=== PATIENT | female | born 1960 | race Caucasian/White ===

== ENCOUNTER 2017-11-19 17:38 | Emergency (ER) | payer OTHER ==
[~2017-11-19] VITALS: Ht 180.3 cm; Wt 124.3 kg
[2017-11-19 17:44] VITALS: BP 144/90; Ht 180.3 cm; Wt 124.3 kg
== END 2017-11-19 20:15 | disposition home or self-care (01) ==
LOC: ED 17:38
DX: H01.011 Ulcerative blepharitis right upper eyelid (principal); I10 Essential (primary) hypertension; E11.9 Type 2 diabetes mellitus without complications; M79.7 Fibromyalgia

== ENCOUNTER 2018-12-11 06:08 | Emergency (ER) | payer OTHER ==
[~2018-12-11] VITALS: Ht 177.8 cm; Wt 120.2 kg
[2018-12-11 06:14] VITALS: Ht 177.8 cm; Wt 120.2 kg
[2018-12-11 07:07] LABS: BASOPHIL % 0.4 % (0-2); PLATELET COUNT 232 x10^3mcL (130-400); RED CELL DISTRIBUTION WIDTH 13.5 % (11.5-14.5)
[2018-12-11 07:14] LABS: CALCIUM 9.4 mg/dL (8.5-10.1); CHLORIDE SERUM 105 mmol/L (98-107); CREATININE SERUM 0.6 mg/dL (0.6-1.0); GFR1 > 60 mL/min; GLUCOSE SERUM 225 mg/dL (74-106); POTASSIUM SERUM 4.2 mmol/L (3.5-5.1); SODIUM SERUM 142 mmol/L (136-145)
[2018-12-11 07:20] LABS: ALBUMIN 3.4 g/dL (3.4-5.0); ALKALINE PHOSPHATASE 86 U/L (46-116); ALT/SGPT 59 U/L (14-59); AST/SGOT 35 U/L (15-37); BILIRUBIN TOTAL 0.4 mg/dL (0.20-1.00); TOTAL PROTEIN, SERUM 7.1 g/dL (6.4-8.2)
[2018-12-11 08:18] VITALS: BP 145/68
== END 2018-12-11 08:18 | disposition home or self-care (01) ==
LOC: ED 06:08
PROVIDERS: Emergency Medicine
DX: S80.02XA Contusion of left knee, initial encounter (principal); I10 Essential (primary) hypertension; E11.9 Type 2 diabetes mellitus without complications; E78.00 Pure hypercholesterolemia, unspecified; R42 Dizziness and giddiness; R55 Syncope and collapse; W18.30XA Fall on same level, unspecified, initial encounter; Y93.89 Activity, other specified; Y92.89 Other specified places as the place of occurrence of the external cause; Y99.8 Other external cause status
CPT/HCPCS: 36415

== ENCOUNTER 2019-02-17 19:09 | Inpatient (IN) | payer OTHER ==
[~2019-02-17] VITALS: Ht 177.8 cm; Wt 123.6 kg
[2019-02-17 19:19] VITALS: Ht 177.8 cm; Wt 123.6 kg
--- NOTE | 2019-02-17 19:22 | NUR ---
EKG IN PROGRESS.
--- NOTE | 2019-02-17 19:38 | NUR ---
PT CAME TO ED CO LEFT CHEST PAIN PT STS PAIN STARTED LAST NIGHT. PT STS THE PAIN IS A SHARP PAIN THAT HAS BECOME INCREASINGLY WORSE, RADIATING TO THE LEFT BACK AREA, RATING PAIN 9/10. PT STS THE PAIN INCREASES WHEN SHE IS WALKING. PT STS SHE HAS EXPERIENCED MORE STRESS LATELY THAN NORMAL. PT STS SHE HAS HAD SOME NAUSEA. PT IS TALKING IN COMPLETE SENTENCES. NO S/S OF DISTRESS. RESP E/U. DR. AUGUSTE AT BEDSIDE FOR MSE. COMFORT MEASURES IMPLEMENTED. WILL CONTINUE TO MONITOR.
[2019-02-17 20:01] LABS: BASOPHIL % 0.3 % (0-2); PLATELET COUNT 239 x10^3mcL (130-400)
[2019-02-17 20:08] LABS: CALCIUM 8.6 mg/dL (8.5-10.1); CARBON DIOXIDE 28.8 mmol/L (21-32); CHLORIDE SERUM 102 mmol/L (98-107); CREATININE SERUM 0.7 mg/dL (0.6-1.0); GFR1 > 60 mL/min; GLUCOSE SERUM 192 mg/dL (74-106); POTASSIUM SERUM 3.6 mmol/L (3.5-5.1); SODIUM SERUM 143 mmol/L (136-145)
[2019-02-17 20:13] LABS: ALBUMIN 3.9 g/dL (3.4-5.0); ALKALINE PHOSPHATASE 89 U/L (46-116); ALT/SGPT 82 U/L (14-59); AST/SGOT 68 U/L (15-37); BILIRUBIN TOTAL 0.54 mg/dL (0.20-1.00); TOTAL PROTEIN, SERUM 7.6 g/dL (6.4-8.2)
[2019-02-17] MEDS ORDERED: GLIPIZIDE10 M2 PO (20:31)
[2019-02-17] MEDS ORDERED: LYRICA75 M1 PO (20:32)
[2019-02-17] MEDS ORDERED: NEU300 PO (20:32)
[2019-02-17] MEDS ORDERED: GLU850 PO (20:32)
[2019-02-17] MEDS ORDERED: ALOGLIPTIN25 MG PO (20:32)
[2019-02-17] MEDS ORDERED: DOXYCYCLINE HYC50 MG PO (20:32)
[2019-02-17] MEDS ORDERED: COZAAR100 MG PO (20:33)
[2019-02-17] MEDS ORDERED: ATORVASTATIN CA40 M1 PO (20:33)
[2019-02-17] MEDS ORDERED: CARVEDILOL12.5 M1 PO (20:33)
--- NOTE | 2019-02-17 20:34 | NUR ---
PT MEDICATED PER ORDER. PT VERBALIZED UNDERSTANDING OF MEDICATION TEACHING. SEE EMAR FOR DETAILS.
--- NOTE | 2019-02-17 21:14 | NUR ---
PT MEDICATED PER ORDER. PT VERBALIZED UNDERSTANDING OF MEDICATION TEACHING. SEE EMAR FOR DETAILS.
--- NOTE | 2019-02-17 21:45 | NUR ---
REPORT GIVEN TO GAGE GRACIA TO ASSUME CARE OF PT
[2019-02-17 21:48] LABS: microscopic required? NO
[2019-02-17 22:05] LABS: UA SPECIFIC GRAVITY <=1.005 (1.005-1.035); urine erythrocyte NEGATIVE (NEGATIVE)
[2019-02-17 22:06] LABS: CHOLESTEROL/HDL RATIO 2.5
--- NOTE | 2019-02-17 22:11 | NUR ---
PT TAKEN TO TELE FLOOR ACCOMPANIED BY NURSE AND EMT. NO S/S OF DISTRESS. RESP E/U. PT CONNECTED TO MONITOR. DURING TRANSFER. IV SITE PATENT, NO S/S OF INFILTRATION.
[2019-02-17 22:14] VITALS: BP 177/80
[2019-02-17 22:20] LABS: AMPHETAMINE QUAL UR NONE DETECTED (See below)
--- NOTE | 2019-02-17 22:26 | NUR ---
RECEIVED FROM ER TRANSPORTED VIA [facility], ABLE TO AMBULATE WITH STEADY GAIT FROM HALLWAY TO ROOM. AWAKE AND ALERT, ORIENTED TO NAME, PLACE, TIME AND SITUATION. SPEECH CLEAR AND APPROPRIATE. STATED HAVING EPISODES OF DIZZINESS, PRIOR TO ADMISSION, STATED BEING JUST A LITTLE DIZZY AT THIS TIME, BUT WAS VERY DIZZY WHILE IN THE ELEVATOR DURING TRANSPORT. STATED HAVING SOME SHORTNESS OF BREATH WHEN SHE WALKED INTO ROOM. BREATHING EVEN AND UNLABORED ON ROOM AIR AT THIS TIME, LUNG SOUNDS CLEAR. STATED PAIN TO LEFT SIDE OF CHEST RADIATING TO BACK HAS IMPROVED FROM 10/10 TO 7/10. SALINE LOCK TO LEFT AC. INSTRUCTED ON USE OF CALL LIGHT TO CALL FOR ASSISTANCE, PLACED WITHIN EASY REACH. HOB ELEVATED 45 DEG. ENDORSED TO AGENCY NURSE RHODA
[2019-02-18 05:01] VITALS: BP 145/80
[2019-02-18 06:17] LABS: BASOPHIL % 0.3 % (0-2); PLATELET COUNT 218 x10^3mcL (130-400); RED CELL DISTRIBUTION WIDTH 14.4 % (11.5-14.5)
[2019-02-18 06:26] LABS: CALCIUM 8.2 mg/dL (8.5-10.1); CARBON DIOXIDE 29.9 mmol/L (21-32); CHLORIDE SERUM 106 mmol/L (98-107); CREATININE SERUM 0.6 mg/dL (0.6-1.0); GFR1 > 60 mL/min; GLUCOSE SERUM 148 mg/dL (74-106); LIPASE 23 IU/L (73-393); MAGNESIUM 1.5 mg/dL (1.8-2.4); PHOSPHOROUS 3.7 mg/dL (2.5-4.9); POTASSIUM SERUM 3.8 mmol/L (3.5-5.1); SODIUM SERUM 143 mmol/L (136-145)
--- NOTE | 2019-02-18 06:53 | NUR ---
CLARIFICATION OF INDICATION FOR LYRICA- FIBROMYALGIA NEURONTIN- DIABETIC NEUROPATHY PER PATIENT STATEMENT Mateo DAVIS RN
--- NOTE | 2019-02-18 07:30 | NUR ---
RECEIVED PT IN BED A/A/OX4 DENIES MOORE. PT C/O MILD LT SIDED BLURRED VISION AND HEARING LOSS. NO OTHER NEURO DEFICIT NOTED OR REPORTED. RESP EVEN AND UNLABORED WITH CLEAR BS BILAT. DENIES ANY SOB/CP/PRESSURE AT THIS TIME. NOTED WITH TRACE EDEMA TO BLE. IV SL TO LAC. ABD OBESE, SOFT, NONTENDER WITH ACTIVE BS X4. VOIDING FREELY. CALL LIGHT IN REACH NEEDS ATTENDED TO.
[2019-02-18 08:39] VITALS: BP 187/76
--- NOTE | 2019-02-18 09:00 | NUR ---
PT HAD BEEN TAKEN FOR CT HEAD PER TECH MACHINE WENT DOWN DURING STUDY AND CT MIGHT NOT BE ABLE TO TO BE READ. PAGED AND SPOKE WITH DR. BAIRES AND MADE AWARE OF POSSIBLE DELAY AND THAT TELE NEURO SERVICES HAVE NEW PROVIDED AND NEW PROCESS WENT LIVE TODAY. WHILE SPEAKING WITH WAS NOTIFIED BY US THAT RADIOLOGY CALLED AND STATED THAT CT HEAD WAS COMPLETED AND WOULD BE READ. MD AWARE AND NOTIFIED SHE WOULD UPDATED WITH ANY CHANGES. SPOKE WITH UNIT DIRRECTOR REGARDING TELE NEURO SERVICE MADE AWARE THAT NEW SYSTEM HAD GONE LIVE AND THAT SHE WILL PROVIDE NEW INSTRUCTIONS FOLDER TO UTILIZING MOBILE UNIT.
--- NOTE | 2019-02-18 09:45 | NUR ---
SPOKE WITH CHRONOMETER ASSEMBLER MADE AWARE AWAITING COOPERATE INSTRUCTIONS. ALSO MADE AWARE THAT NEW GROUP PREFERS TO HAVE ALL STUDY IN HAND PRIOR TO EVALUATION. TELE NEURO EVAL WAS ORDERED ROUTINE AND AT THIS TIME CT HEAD RESULTS ARE NOT POSTED. AWAITING EVAILABILITY OF SYSTEM. CONT TO MONITOR.
--- NOTE | 2019-02-18 09:53 | NUR ---
SPOKE WITH ARMAMENT INSTALLER REGARDING CT HEAD SCAN MADE AWARE BY TECH THAT THE SCAN WAS NOT DONE AND HE WAS NOT SURE WHY THE STATION WAS CALLED TO LET US KNOW THAT IT WAS DONE. DR. BAIRES PAGED TO MAKE MD AWARE.
[2019-02-18 10:30] VITALS: BP 137/62
--- NOTE | 2019-02-18 10:30 | NUR ---
UPDATED PT ON CT HEAD STATUS MADE AWARE THAT EXAM HAD WAS NOT COMPLETED IN AM AND AT THIS TIME IT REMAIN PENDING UNTIL CT MACHINE WOULD BE FIX. PT AWARE THAT MD HAS BEEN NOTIFIED AND IS PENDING FURTHER ORDERS.
--- NOTE | 2019-02-18 11:20 | NUR ---
SPOKE WITH DR. BAIRES REGARDING CT STATUS PER MD INSTRUCTED TO WAIT FOR CT TO BE DONE WITH RESULTS PRIOR TO MOVING FORWARD WITH TELE NEURO. AWAITING CALL FROM RADIOLOGY AT THIS TIME.
--- NOTE | 2019-02-18 11:45 | NUR ---
PT TAKEN DOWN TO RADIOLOGY FOR CT AT THIS TIME.
--- NOTE | 2019-02-18 12:00 | NUR ---
MADE AWARE PT BACK FROM CT AT THIS TIME.
[2019-02-18 13:17] VITALS: BP 174/71
--- NOTE | 2019-02-18 14:30 | NUR ---
NOTICED PT'S B/P HAD BEEN IN 170S SYSTOLIC PT WITH ORDER FOR LASIX IVP X1 MEDICATED AT THIS TIME. PT MADE AWARE OF ORDER FOR PRN NITRO FOR SBP>160, PT REQUESTED TO WAIT FOR EFFECT ON B/P WITH LASIX BEFORE TAKING A DIFFERENT PRN MEDICATION. WILL RE-EVALUATE B/P AND MEDICATED NEEDED WITH PT'S AGREEMENT.
[2019-02-18 16:10] VITALS: BP 148/74
--- NOTE | 2019-02-18 16:15 | NUR ---
DR. BAIRES MADE AWARE THAT AFTER TAKING LASIX IVP PT C/O FEELING FLUSED AND SOB, VSS O2 SAT 97%. TO CHANGE LASIX TO PO FORM. MD INQUIRED ABOUT TELE NEURO MADE AWARE THAT PER PT SHE HAD SPOKE WITH NEUROLOGIST BUT NO REPORT HAD BEEN RECEIVED YET. WILL F/U WITH SOC TELEMED.
--- NOTE | 2019-02-18 16:42 | NUR ---
HAD CALLED [facility] AND REQUESTED FOR REPORT TO BE FAXED WAS MADE AWARE THAT IT HAD BEEN DONE AND WOULD BE SENT OVER. AT THIS TIME RECEIVED ONLY 2 SHEETS WITHOUT NEUROLOGIST RECOMMENDATIONS. THEODORE ESPINOSA CALLED BACK AND SPOKE WITH JEROMY STATED THAT HE WOULD SPEAK WITH PHYSICIAN REGARDING PLACING IN CONSULT NOTES AND THEY WOULD BE FAXED ONCE COMPLETED.
--- NOTE | 2019-02-18 16:48 | NUR ---
RECEIVED A CALL FROM SOC CONSULT HAD BEEN UPLOADED TO [facility] DIRRECTLY BY PHYSICIAN THE NEW PROTOCOL THAT STARTED TODAY. DR. BAIRES MADE AWARE VIA [facility] AWAITING FURTHER ORDERS.
--- NOTE | 2019-02-18 18:30 | NUR ---
NOTED WITH ELEVATED B/P 179/71 PT MEDICATED WITH NITRO SL PER PRN ORDER FOR SBP>160. WILL CONT TO MONITOR.
--- NOTE | 2019-02-18 19:15 | NUR ---
RECEIVED PT FROM PREVIOUS SHIFT NURSE. PT AOX4, DENIES MOORE/DIZZINESS AT THIS TIME. PT ON TELE #1, READING NSR, HR 67. DENIES CP/PRESSURE. DENIES SOB/DIFFICULTY BREATHING, ON RA. IV TO LAC, INTACT AND PATENT. BED IN LOWEST POSITION. CALL LIGHT WITHIN REACH. WILL CONTINUE TO MONITOR.
[2019-02-18 20:23] VITALS: BP 176/79
--- NOTE | 2019-02-19 02:52 | NUR ---
PT RESTING IN BED. RR EVEN AND UNLABORED. IN NO ACUTE DISTRESS. CALL LIGHT WITHIN REACH. BED IN LOWEST POSITION. WILL CONTINUE TO MONITOR.
[2019-02-19 05:29] VITALS: BP 157/76
[2019-02-19 06:24] LABS: BASOPHIL % 0.3 % (0-2); PLATELET COUNT 225 x10^3mcL (130-400); RED CELL DISTRIBUTION WIDTH 14.1 % (11.5-14.5)
[2019-02-19 06:30] LABS: CALCIUM 8.8 mg/dL (8.5-10.1); CARBON DIOXIDE 32.8 mmol/L (21-32); CHLORIDE SERUM 106 mmol/L (98-107); CREATININE SERUM 0.5 mg/dL (0.6-1.0); GFR1 > 60 mL/min; GLUCOSE SERUM 139 mg/dL (74-106); MAGNESIUM 1.9 mg/dL (1.8-2.4); POTASSIUM SERUM 3.3 mmol/L (3.5-5.1); SODIUM SERUM 145 mmol/L (136-145)
--- NOTE | 2019-02-19 07:30 | NUR ---
A&OX4, FOLLOWS COMMANDS. TELE #1, NSR. PERIPHERAL PULSES ARE PALPABLE W/ NO SIGNS OF EDEMA. LUNG SOUNDS ARE DIMINISHED BILATERALLY, ON RA, O2 SAT 98%. NORMOACTIVE BSX4. DOES VOID ON HER OWN BUT ALSO HAS INCONTINENCE. ABLE TO AMBULATE TO THE RESTROOM BY HERSELF, AND STATES THAT SHE USES CANE AT HOME. SKIN IS CDI. DOES NOT COMPLAIN OF PAIN OR DISCOMFORT, INCLUDING HEADACHE PAIN. LAC IV SITE IS CDI. WILL CONTINUE TO MONITOR AND ADDRESS ANY CONCERNS THE PATIENT MAY HAVE.
[2019-02-19 09:35] VITALS: BP 139/66
[2019-02-19 12:36] VITALS: BP 205/95
[2019-02-19 14:23] VITALS: BP 147/87
[2019-02-19 14:24] VITALS: BP 151/82
--- NOTE | 2019-02-19 14:24 | NUR ---
SHE STATED THAT HER HIGH BP RECENTLY, WAS PROBABLY DUE TO ANXIETY ABOUT THE IV CONTRAST SHE RECEIVED FOR THE CT OF HER HEAD AND NECK. DR SEAY IS AWARE OF THE NORMAL RESULTS AND THAT PATIENT HAS A DESIRE TO GO HOME.
--- NOTE | 2019-02-19 15:32 | NUR ---
PT WAS SEEN FOR DYSPHAGIA. PT WAS ABLE TO SAFELY SWALLOW REGULAR DIET WITH THIN LIQUID WITHOUT S/S OF ASPIRATION. RECOMMENDATION REGULAR DIET WITH THIN LIQUID.
[2019-02-19 15:38] VITALS: BP 151/82
[2019-02-19] MEDS ORDERED: TOR10 PO (15:57)
--- NOTE | 2019-02-19 16:47 | NUR ---
RECEIVED DISCHARGE ORDERS FOR PATIENT TO BE DISCHARGED. PATIENT HAS RECEIVED DISCHARGE INSTRUCTIONS AND EDUCATIONAL HANDOUTS INCLUDING CHEST PAIN, MIGRAINES, AND NAUSEA. THE PATIENT IV HAS BEEN DISCONTINUED. THE PATIENT TELE HAS BEEN DISCHARGED. THE PATIENT DID NOT APPEAR TO BE IN ANY DISTRESS AND DISCOMFORT, NOR CHEST PAIN DURING DISCHARGE PROCESS. THE PATIENT HAS ALL QUESTIONS AND CONCERNS ADDRESSED. THE PATIENT IS DISCHARGE VIA WHEELCHAIR WITH SAUSAGE MEAT TRIMMER.
== END 2019-02-19 16:45 | disposition home or self-care (01) | DRG 203 ==
LOC: ED 19:09 → DU 20:50
PROVIDERS: Emergency Medicine; Internal Medicine; ADMIT Family Medicine
DX: M94.0 Chondrocostal junction syndrome [Tietze] (principal); E11.65 Type 2 diabetes mellitus with hyperglycemia; M79.7 Fibromyalgia; I10 Essential (primary) hypertension; G90.8 Other disorders of autonomic nervous system; R74.0 Nonspecific elevation of levels of transaminase and lactic acid dehydrogenase [LDH]; Z79.84 Long term (current) use of oral hypoglycemic drugs; E78.00 Pure hypercholesterolemia, unspecified; Z82.49 Family history of ischemic heart disease and other diseases of the circulatory system; G43.809 Other migraine, not intractable, without status migrainosus
CPT/HCPCS: 82962; 83880; 90658; 92526-GN; 92610-GN; 97530-GP; G0378; J1940; J7030; Q0092; Q9967